=== PATIENT | female | born 1945 | race Hispanic/Latino ===

== ENCOUNTER 2017-10-24 10:51 | Outpatient (CLI) | payer MEDICARE ==
--- NOTE | 2017-10-24 12:50 | XRay Report ---
XRAY CHEST TWO VIEWS: 10/24/17 10:51:00 CLINICAL: Cough. COMPARISON: None FINDINGS: Normal heart and pulmonary vasculature. The lungs are normally expanded and clear.The bones and soft tissues are unremarkable. IMPRESSION: Normal chest.
== END 2017-10-24 10:52 | disposition home or self-care (01) ==
LOC: SPVIMAG 10:51
PROVIDERS: ATTEND Internal Medicine
DX: R05 Cough (principal); Z68.32 Body mass index [BMI] 32.0-32.9, adult
CPT/HCPCS: 71046